=== PATIENT | male | born 1975 | race Caucasian/White ===

== ENCOUNTER 2020-04-08 12:38 | Inpatient (IN) | payer OTHER ==
[~2020-04-08] VITALS: Ht 177.8 cm; Wt 56.5 kg
[2020-04-08 12:50] VITALS: BP 125/43
--- NOTE | 2020-04-08 13:05 | NUR ---
DR BURNS EVALUATING PT AT BEDSIDE
[2020-04-08] MEDS ORDERED: NACL 0.9% 1,000 ML IV ONE ×2 (13:10→14:55)
--- NOTE | 2020-04-08 13:26 | NUR ---
PT STATES HE IS UNABLE TO VOID NOW. URINAL PROVIDED.
--- NOTE | 2020-04-08 13:26 | NUR ---
BLOOD DRAW HANDED TO PUBLIC HEALTH TECHNOLOGIST
--- NOTE | 2020-04-08 13:27 | NUR ---
XRAY AT BEDSIDE
--- NOTE | 2020-04-08 13:29 | NUR ---
C/O GENERALIZED WEAKNESS AND LOSS OF APPETITE X JANUARY BUT UNABLE TO GET SELF OUT OF BED YESTERDAY DUE TO SEVERE WEAKNESS. PT WAS ASSISTED FROM W/C TO [facility] BY DIRECTOR PROFESSIONAL SERVICES. PT REPORTS HE SPENT 12 DAYS AT [facility] IN JANUARY FOR ULCERATIVE COLITIS WHERE HE EXPERIENCED SEVERE WEIGHT LOSS DENIES N/V, F/C, BLOOD IN STOOL SINUS TACH ON BEDSIDE MONITOR RX- PREDNISONE AND MESALAMINE
[2020-04-08 13:36] LABS: HEMATOCRIT 30.9 % (36-52); HEMOGLOBIN 10.2 g/dL (12.0-18.0); MEAN CORPUSCULAR HEMOGLOBIN 28 pg (27-31); MEAN CORPUSCULAR HGB CONC 33 g/dL (33-37); MEAN CORPUSCULAR VOLUME 85.1 fL (80-94); PLATELET COUNT (AUTO) 600 K/uL (140-450); RED BLOOD CELL COUNT(AUTO) 3.64 MIL/uL (4.20-6.10); RED CELL DISTRIBUTION WIDTH 16.5 % (11.6-13.7); WHITE BLOOD COUNT (AUTO) 9.7 K/uL (4.8-10.8)
[2020-04-08 13:51] LABS: LYMPHOCYTES % (MANUAL) 18 % (20-46); MONOCYTES % (MANUAL) 7 % (5-12)
[2020-04-08 13:52] LABS: PROTHROMBIN TIME 10.8 secs (10.8-13.4)
[2020-04-08 13:53] LABS: ALBUMIN 1.7 g/dL (3.4-5.0); ANION GAP 14.3 (8-16); ASPARTATE AMINOTRANSFERASE 12 U/L (15-37); CARBON DIOXIDE 25.8 mmol/L (21-32); CHLORIDE 91 mmol/L (98-107); CREATININE 0.6 mg/dL (0.6-1.3); GFR ARICAN-AMERICAN 187 mL/min (>90); GLUCOSE 123 mg/dL (74-106); POTASSIUM 4.1 mmol/L (3.5-5.1); SODIUM SERUM 127 mmol/L (136-145); TOTAL BILIRUBIN 0.5 mg/dL (0.0-1.0); UREA NITROGEN, BLOOD 22 mg/dL (7-18)
--- NOTE | 2020-04-08 14:16 | NUR ---
ASKED LAB TO TEXTILE SCREEN MAKER URINE SAMPLE THAT WAS JUST COLLECTED
[2020-04-08 14:24] LABS: APPEARANCE,URINE CLOUDY (CLEAR); BILIRUBIN,URINE 2+ (NEGATIVE); BLOOD, URINE TRACE-I (NEGATIVE); COLOR,URINE DARK YELLOW (YELLOW); LEUKOCYTE ESTERASE ,URINE NEGATIVE (NEGATIVE); NITRITE, URINE POSITIVE (NEGATIVE); PH,URINE 6.5 (5.0-9.0); UGLUCOSE TRACE (NEGATIVE)
[2020-04-08 14:37] LABS: WBC,URINE 0-5 /HPF (0-5)
[2020-04-08 14:39] LABS: BARBITURATE, URINE NEGATIVE ng/ml (NEG <=200); BENZODIAZEPINE, URINE NEGATIVE ng/mL (NEG <=200); CANNABINOID, URINE NEGATIVE ng/mL (NEG <=50); COCAINE, URINE NEGATIVE ng/mL (NEG <=300); OPIATE, URINE NEGATIVE ng/mL (NEG <=2000); PHENCYCLIDINE SCREEN,URINE NEGATIVE ng/mL (NEG <=25)
[2020-04-08] MEDS ORDERED: MESA500C PO (14:59)
[2020-04-08] MEDS ORDERED: cefTRIAXone 1,000 MG VIAL ONE (14:59)
[2020-04-08] MEDS ORDERED: PRED10TA5 PO (14:59)
[2020-04-08 15:07] LABS: COARSE GRANULAR CASTS,URINE 0-10 /LPF (None Seen)
[2020-04-08] MEDS ORDERED: LORazepam 2 MG/ML VIAL IM/IVP PRN (15:20)
[2020-04-08] MEDS ORDERED: DOCUSATE SODIUM 100 MG GELCAP PO PRN (15:20)
[2020-04-08] MEDS ORDERED: ONDANSETRON 4 MG/2 ML VIAL IM/IVP PRN (15:20)
[2020-04-08] MEDS ORDERED: ACETAMINOPHEN 325 MG TAB PO PRN (15:20)
[2020-04-08] MEDS ORDERED: HYDROcodone/APAP 5/325 MG 1 TAB TAB PO PRN (15:20)
[2020-04-08] MEDS ORDERED: MORPHINE SULFATE 2 MG/ML SYR IVP PRN (15:20)
[2020-04-08 16:10] VITALS: BP 104/64
--- NOTE | 2020-04-08 16:10 | NUR ---
Patient will be admitted to care of DR. WELSH. Admited to TELE. Will go to room 111B. Belongings list completed. Report to PRINCESS GARNETT.
--- NOTE | 2020-04-08 16:10 | NUR ---
RECEIVED PATIENT FROM ED NURSE FOR CONTINUITY OF CARE VIA BRIANA. PATIENT IS AAOX4. RESPIRATIONS EVEN AND UNLABORED, ROOM AIR. VISIBLE CHEST RISE AND FALL NOTED. ON TELE MONITORING. ABDOMEN SOFT, FLAT, AND NONTENDER. HX OF ULCERATIVE COLITIS AND DM TYPE 2. SKIN WARM, DRY, AND INTACT. SACRAL REDNESS NOTED. IV ON R AC G20, SALINE LOCK. BEDREST DUE TO GENERALIZED WEAKNESS. PATIENT STATED HE HAS BEEN WEAK 2 MONTHS AGO. FALL PRECAUTION IN PLACE. BED IN LOW POSITION. CALL LIGHT IS WITHIN REACH. WILL CONTINUE TO MONITOR.
--- NOTE | 2020-04-08 16:14 | NUR ---
VITAL SIGNS TAKEN: BP 104/64, HR: 94, TEMPERATURE: 97.7, ORALLY, RESPIRATIONS 17, UNLABORED. DENIES PAIN. DENIES SOB. MRSA NARES SWAB COLLECTED.
[2020-04-08] MEDS: NACL 0.9% 1,000 ML IV SCH (16:15)
[2020-04-08] MEDS: LACTOBACILLUS RHAMNOSUS GG 1 EACH CAP PO SCH ×2 (16:16→16:28)
--- NOTE | 2020-04-08 16:16 | NUR ---
HUNG NS AT A RATE OF 60 ML/HR PER MD ORDER. GIVEN CULTURELLE DRAKE. EXPLAINED MEDICATION. WILL CONTINUE TO MONITOR
[2020-04-08 16:54] LABS: PHOSPHORUS 3.2 mg/dL (2.5-4.9); THYROID STIMULATING HORMONE 1.42 uIU/mL (0.34-3.74)
--- NOTE | 2020-04-08 17:15 | NUR ---
PER PATIENT, HE IS UNABLE TO DIGEST BEEF AND DAIRY. WILL NOTIFY FNS.
--- NOTE | 2020-04-08 17:22 | NUR ---
DR. MG AT BEDSIDE EXAMINING PATIENT
[2020-04-08] MEDS ORDERED: DEXTROSE 50% 50 ML SYR IVP PRN (17:40)
[2020-04-08] MEDS ORDERED: INSULIN LISPRO SLIDING SCALE 100 UNITS/ML VIAL SUBQ PRN (17:40)
--- NOTE | 2020-04-08 17:40 | NUR ---
ONE BM, LIQUID AND BROWN IN COLOR.
--- NOTE | 2020-04-08 17:54 | NUR ---
ASSISTED PATIENT TO COMMODE FOR BM.
[2020-04-08] MEDS ORDERED: SODIUM FERRIC GLUCONATE 125 MG in NACL 0.9% 100 ML IV SCH (18:00)
[2020-04-08] MEDS ORDERED: FERROUS SULFATE 325 MG TABEC PO SCH (18:00)
--- NOTE | 2020-04-08 18:12 | NUR ---
MEDS WERE GIVEN. MEDICATION EDUCATION WAS PROVIDED AND PATIENT VERBALIZED UNDERSTANDING. PATIENT WAS SITTING UPRIGHT EATING DINNER. PATIENT WAS IN STABLE CONDITION.
--- NOTE | 2020-04-08 19:15 | NUR ---
RECEIVED REPORT FROM AM SHIFT NURSE FOR CONTINUITY OF CARE. PATIENT ON TELE MONITOR. IV TO RIGHT AC INTACT AND PATENT WITH FLUIDS INFUSING. PATINET ON ROOM AIR, NO S/S OF RESP DISTRESS. BEDSIDE COMMODE IS NEAR AND PATIENT ENCOURAGED TO CALL FOR ASSISTANCE. VERBALIZED UNDERSTANDING. NO CURRENT COMPLAINT OF PAIN. BED IN LOW POSITION AND CALL LIGHT WITHIN REACH. WILL CONTINUE TO MONITOR
--- NOTE | 2020-04-08 19:21 | NUR ---
ENDORSED PATIENT TO NBA PLAYER NURSE FOR CONTINUITY OF CARE. PATIENT IS IN STABLE CONDITION.
[2020-04-08 20:00] VITALS: BP 104/56
[2020-04-08] MEDS: BLOOD GLUCOSE MONITORING 1 DEV DEV FS SCH (20:59)
--- NOTE | 2020-04-08 20:59 | NUR ---
BLOOD SUGAR WAS CHECKED RESULT 87. PROVIDED WITH SOME SANDWICH. WILL CONTINUE TO MONITOR.
[2020-04-08] MEDS: predniSONE 10 MG TAB PO SCH (21:00)
[2020-04-08] MEDS: MESALAMINE 400 MG CAPSULE.DR PO SCH (21:03)
--- NOTE | 2020-04-08 21:10 | NUR ---
MEDICATION GIVEN BY MOUTH AND PATIENT TOLERATED WELL. MEDICATION EDUCATION GIVEN AND PATIENT VERBALIZED UNDERSTANDING. SNACKS AND WATER PROVIDED. PATIENT WILL CONTINUE TO BE MONITORED.
--- NOTE | 2020-04-08 22:00 | NUR ---
ASSISTED TO USE BSC. VOIDED AND HAD A LOOSE BM. CLEANED AND KEPT DRY. ASSISTED BACK TO BED WITH NO SOB NOTED.
[2020-04-09 00:10] VITALS: BP 95/62
--- NOTE | 2020-04-09 01:30 | NUR ---
MADE ROUNDS. PT IS ASLEEP. NO S/S OF ANY DISCOMFORT NOR PAIN NOTED.
--- NOTE | 2020-04-09 03:24 | NUR ---
PATIENT AWAKE, REQUESTED A SANDWICH TO EAT, AND ONE WAS PROVIDED. NO CURRENT COMPLAINTS VOICED. WILL CONTINUE TO MONITOR.
[2020-04-09 04:00] VITALS: BP 103/69
--- NOTE | 2020-04-09 05:35 | NUR ---
PATIENT RESTING IN BED WITH EYES CLOSED, RESP EVEN AND UNLABORED
[2020-04-09] MEDS: BLOOD GLUCOSE MONITORING 1 DEV DEV FS SCH ×4 (06:21→20:40)
--- NOTE | 2020-04-09 06:24 | NUR ---
BLOOD GLUCOSE 83, NO COVERAGE NEEDED
[2020-04-09 06:43] LABS: BASOPHILS % (AUTO) 0.2 % (0.0-2.0); EOSINOPHILS % (AUTO) 0.2 % (0.0-4.0); HEMOGLOBIN 8.3 g/dL (12.0-18.0); LYMPHOCYTES # (AUTO) 1.4 K/uL (2.0-11.5); LYMPHOCYTES % (AUTO) 19.3 % (20.5-51.1); MEAN CORPUSCULAR HEMOGLOBIN 29 pg (27-31); MEAN CORPUSCULAR HGB CONC 33 g/dL (33-37); MONOCYTES # (AUTO) 0.6 K/uL (0.8-1.0); MONOCYTES % (AUTO) 8.2 % (1.7-9.3); NEUTROPHILS # (AUTO) 5.2 K/uL (1.8-7.7); NEUTROPHILS % (AUTO) 72.1 % (42.2-75.2); PLATELET COUNT (AUTO) 466 K/uL (140-450); RED BLOOD CELL COUNT(AUTO) 2.87 MIL/uL (4.20-6.10); RED CELL DISTRIBUTION WIDTH 16.7 % (11.6-13.7); WHITE BLOOD COUNT (AUTO) 7.2 K/uL (4.8-10.8)
[2020-04-09 06:58] LABS: CARBON DIOXIDE 28.6 mmol/L (21-32); CREATININE 0.5 mg/dL (0.6-1.3); POTASSIUM 4.6 mmol/L (3.5-5.1)
--- NOTE | 2020-04-09 07:10 | NUR ---
RECEIVED REPORT FROM NIGHT NURSE FOR CONTINUITY OF CARE, PT IS STABLE, PT RESTING IN BED, PT AA0X4, PT ON ROOM AIR, PT HAS RIGHT AC 20G INFUSING NORMAL SALINE AT 60 ML/H, SKIN INTACT, INTRODUCE SELF, UPDATED WHITEBOARD, BED IN LOW POSITION, SAFETY MEASURES IN PLACE, CALL LIGHT WITHIN REACH,
[2020-04-09 07:11] LABS: CHOL/HDL RATIO 2.3 (1-4.5)
--- NOTE | 2020-04-09 07:30 | NUR ---
REPORT GIVEN TO AM SHIFT NURSE FOR CONTINUITY OF CARE. PATIENT IN STABLE CONDITION AT THIS TIME
[2020-04-09 08:00] VITALS: BP 97/63
[2020-04-09 08:18] LABS: FOLIC ACID 6.3 ng/mL (>3.0)
[2020-04-09] MEDS: NACL 0.9% 1,000 ML IV SCH ×2 (08:53→23:12)
[2020-04-09] MEDS: FERROUS SULFATE 325 MG TABEC PO SCH ×2 (08:53→16:55)
[2020-04-09] MEDS: LACTOBACILLUS RHAMNOSUS GG 1 EACH CAP PO SCH (08:55)
[2020-04-09] MEDS: ASCORBIC ACID 500 MG TAB PO SCH (08:55)
[2020-04-09] MEDS: predniSONE 10 MG TAB PO SCH ×2 (08:55→20:45)
[2020-04-09] MEDS: MESALAMINE 400 MG CAPSULE.DR PO SCH ×2 (08:56→21:00)
--- NOTE | 2020-04-09 08:59 | NUR ---
ADMINISTERED SCHEDULED MEDICATION, MEDICATION EDUCATION GIVEN, PT VERBALIZED UNDERSTANDING, PT TOLERATED WELL, PT IS STABLE, CALL LIGHT WITHIN REACH.
--- NOTE | 2020-04-09 11:40 | NUR ---
PT RESTING IN BED, NO SIGNS OF DISTRESS NOTED, RESPIRATIONS ARE EVEN AND UNLABORED ON ROOM AIR, PT IS STABLE, CALL LIGHT WITHIN REACH.
[2020-04-09 12:00] VITALS: BP 102/74
--- NOTE | 2020-04-09 13:12 | NUR ---
PT RESTING IN BED WATCHING TV, PT IS STABLE, NO SIGNS OF DISTRESS NOTED, RESPIRATIONS ARE EVEN AND UNLABORED ON ROOM AIR, CALL LIGHT WITHIN REACH.
--- NOTE | 2020-04-09 15:14 | NUR ---
ADMINISTERED SCHEDULED MEDICATION, MEDICATION EDUCATION GIVEN, PT VERBALIZED UNDERSTANDING, PT TOLERATED MEDICATION, PT IS STABLE, NO SIGNS OF DISTRESS NOTED, RESPIRATIONS ARE EVEN AND UNLABORED ON ROOM AIR.
[2020-04-09 16:00] VITALS: BP 99/66
--- NOTE | 2020-04-09 16:57 | NUR ---
ADMINISTERED SCHEDULED MEDICATION, MEDICATION EDUCATION GIVEN, PT VERBALIZED UNDERSTANDING, PT IS STABLE, NO SIGNS OF DISTRESS NOTED, RESPIRATIONS ARE EVEN AND UNLABORED ON ROOM AIR, CALL LIGHT WITHIN REACH.
--- NOTE | 2020-04-09 19:20 | NUR ---
GAVE REPORT TO NIGHT NURSE FOR CONTINUITY OF CARE, PT IS STABLE
--- NOTE | 2020-04-09 19:25 | NUR ---
RECEIVED ENDORSEMENT FROM AM SHIFT RN. PATIENT IS LYING IN BED, FOWLERS POSITION. AAOX4. RESPIRATION EVEN AND UNLABORED. DENIES PAIN. ASSESSMENT DONE. WITH IV SITE AT RAC 20 G, INFUSING IVF AT 60CC/HR. PATIENT USES BEDSIDE COMMODE ENDORSED. PLAN OF CARE WAS DISCUSSED. FALL RISK PROTOCOL ON PLACE. CALL LIGHT WITHIN REACH. WILL CONTINUE TO MONITOR.
[2020-04-09 20:00] VITALS: BP 107/70
--- NOTE | 2020-04-09 20:40 | NUR ---
DUE MEDS GIVEN ORDERED. TOLERATED WELL. MESALAMINE CAPSULE WAS NOT GIVEN DUE TO UNAVAILABILITY OF MED.
--- NOTE | 2020-04-09 21:30 | NUR ---
ASSISTED PATIENT TO BEDSIDE COMMODE. NOTED BM X1. VOID X1.
[2020-04-10] VITALS: BP 107/68
--- NOTE | 2020-04-10 | NUR ---
V/S TAKEN AND RECORDED. NOT IN ANY ACUTE DISTRESS.
--- NOTE | 2020-04-10 03:42 | NUR ---
PATIENT IS SLEEPING AT THIS TIME. RESPIRATION EVEN AND UNLABORED.
[2020-04-10 04:00] VITALS: BP 90/63
[2020-04-10] MEDS: BLOOD GLUCOSE MONITORING 1 DEV DEV FS SCH ×4 (05:30→21:43)
[2020-04-10 06:57] LABS: BASOPHILS % (AUTO) 0.2 % (0.0-2.0); EOSINOPHILS % (AUTO) 0.2 % (0.0-4.0); HEMATOCRIT 24.9 % (36-52); HEMOGLOBIN 8.1 g/dL (12.0-18.0); LYMPHOCYTES # (AUTO) 1.5 K/uL (2.0-11.5); LYMPHOCYTES % (AUTO) 20.3 % (20.5-51.1); MEAN CORPUSCULAR HEMOGLOBIN 28 pg (27-31); MEAN CORPUSCULAR HGB CONC 33 g/dL (33-37); MEAN CORPUSCULAR VOLUME 87.5 fL (80-94); MONOCYTES # (AUTO) 0.6 K/uL (0.8-1.0); MONOCYTES % (AUTO) 7.7 % (1.7-9.3); NEUTROPHILS # (AUTO) 5.4 K/uL (1.8-7.7); NEUTROPHILS % (AUTO) 71.6 % (42.2-75.2); PLATELET COUNT (AUTO) 445 K/uL (140-450); RED BLOOD CELL COUNT(AUTO) 2.85 MIL/uL (4.20-6.10); RED CELL DISTRIBUTION WIDTH 16.7 % (11.6-13.7); WHITE BLOOD COUNT (AUTO) 7.5 K/uL (4.8-10.8)
[2020-04-10 06:58] LABS: ANION GAP 9.9 (8-16); CARBON DIOXIDE 26.7 mmol/L (21-32); CREATININE 0.5 mg/dL (0.6-1.3); POTASSIUM 3.6 mmol/L (3.5-5.1)
[2020-04-10 07:00] LABS: MAGNESIUM 1.6 mg/dL (1.8-2.4); PHOSPHORUS 3.2 mg/dL (2.5-4.9)
--- NOTE | 2020-04-10 07:05 | NUR ---
PATIENT IS IN STABLE CONDITION. ENDORSED TO AM SHIFT RN FOR CONTINUITY OF CARE.
--- NOTE | 2020-04-10 07:11 | NUR ---
RECEIVED REPORT FROM NIGHT NURSE FOR CONTINUITY OF CARE. PT RESTING IN BED, AROUSABLE BY VOICE, AOX4. RESPIRATIONS EVEN AND UNLABORED, EQUAL RISE AND FALL OF CHEST BILATERALLY. NO C/O PAIN AT THIS TIME. ALL NEEDS MET. BED LOCKED & LOW, ALL SAFETY MEASURES IN PLACE, CALL LIGHT WITHIN REACH.
--- NOTE | 2020-04-10 07:45 | NUR ---
PT STATES HE DOES NOT WANT DAIRY PRODUCTS ON HIS FOOD TRAY, THAT HE HAS ALLERGY TO DAIRY
[2020-04-10 08:00] VITALS: BP 100/65
--- NOTE | 2020-04-10 08:22 | NUR ---
PATIENT HAS BEEN SCREENED AND CATEGORIZED HIGH NUTRITION RISK. PATIENT WILL BE SEEN WITHIN 1-2 DAYS OF ADMISSION. 04/09/20 - 04/10/20 BERONICA CHICAS MBA, RD
--- NOTE | 2020-04-10 08:45 | NUR ---
CALLED PHARMACY TO BRING SCHEDULED MESALAMINE
[2020-04-10] MEDS: FERROUS SULFATE 325 MG TABEC PO SCH ×2 (09:00→16:09)
[2020-04-10] MEDS: ASCORBIC ACID 500 MG TAB PO SCH (09:01)
[2020-04-10] MEDS: LACTOBACILLUS RHAMNOSUS GG 1 EACH CAP PO SCH (09:01)
[2020-04-10] MEDS: predniSONE 10 MG TAB PO SCH ×2 (09:01→21:43)
--- NOTE | 2020-04-10 09:02 | NUR ---
PT C/O ABD CRAMPING PAIN AFTER EATING SOME OF THE HIGH FIBER BREAKFAST TRAY ORDERED FOR HIM. REFUSING PAIN MEDS AT THIS TIME. WANTS TO SPEAK WITH DRAlex MCDONOUGH OF ABOVE, DR. MCDONOUGH WILL SPEAK WITH PATIENT AT BEDSIDE.
--- NOTE | 2020-04-10 09:23 | NUR ---
HR ASSOCIATE NOTE: Basic Screen: Yes High Risk DC Screen [place]: RENEE LARA [place] Relationship: Pre-Admission Living Arrangements: Lives with Other Prior ADL Independent Current Home Health Name/Tel: N/A Current DME/02 Name/Tel: N/A Current Hospice Name/Tel: N/A Current Dialysis Name/Tel: N/A Advance Directive No Physician Orders for Life Sustaining Treatment Form No Patient/Family Have Educational Needs No Discipline: Case Mgt/Social Svcs Tentative Discharge Plan/Destination: No Needs Identified Will require assistance post discharge: No Referred to Hospital Insurance Representative: No Tentative Discharge Plan Summary: PATIENT IS A 44-YEAR-OLD MALE ADMITTED FOR UTI. PATIENT HAS PMHX OF DM AND ULCERATIVE COLITIS. PATIENT WAS ADMITTED FROM HOME WHERE HE LIVES WITH HIS AND CHILDREN. SW CONTACTED PATIENT'S RENEE LARA [phone]. PER RENEE, PATIENT IS INDEPENDENT WITH ALL ADLS. RENEE REPORTS NO HISTORY OF SUBSTANCE ABUSE OR MENTAL HEALTH. TENTATIVE DISCHARGE PLAN IS FOR PATIENT TO RETURN HOME. NO FURTHER NEEDS IDENTIFIED. Signature: ABBIE BURGESS` Date: Apr 10, 2020 Time: 09:22
--- NOTE | 2020-04-10 09:46 | NUR ---
04/10/20 RD INITIAL ASSESSMENT COMPLETED PLEASE REFER TO NUTRITION ASSESSMENT UNDER CARE ACTIVITY FOR ESTIMATED NUTRITIONAL NEEDS. RD RECOMMENDATIONS: 1. RECOMMEND CHANGE DIET TO 75G CCHO, LOW FIBER DIET (ACCOMODATE FOR INCREASED ENERGY/PROTEIN NEEDS /DM & ULCERATIVE COLITIS) 2. HONOR FOOD PREFERENCES / ENCOURAGE INCREASED PO INTAKE 3. F/U 2-3 DAYS; HIGH RISK BERONICA CHICAS MBA, RD
[2020-04-10] MEDS: MESALAMINE 400 MG CAPSULE.DR PO SCH ×2 (09:47→21:44)
--- NOTE | 2020-04-10 11:21 | NUR ---
DR MCDONOUGH EVALUATING PT, SPEAKING WITH PT AND DISCUSSING POC AT THIS TIME
[2020-04-10] MEDS: NACL 0.9% 1,000 ML IV SCH ×2 (11:24→16:09)
[2020-04-10] MEDS: MAG SULF 2000 MG/WATER PREMIX 100 ML IV SCH ×2 (11:31→14:22)
[2020-04-10 12:00] VITALS: BP 104/69
--- NOTE | 2020-04-10 14:33 | NUR ---
PT RESTING IN BED. APPEARS FATIGUED. NO PAIN. ALL NEEDS MET AT THIS TIME.
[2020-04-10 16:00] VITALS: BP 101/62
--- NOTE | 2020-04-10 17:41 | NUR ---
PT HAD MUSHY STOOLS TODAY, DR. MCDONOUGH IS AWARE
--- NOTE | 2020-04-10 19:21 | NUR ---
REPORT TO GERIATRIC PSYCHIATRIST RN, TRANSFER OF CARE AT THIS TIME, PT IN STABLE CONDITION.
--- NOTE | 2020-04-10 19:30 | NUR ---
RECEIVED REPORT FROM AM RN. RECEIVED PATIENT A/A/OX4, SITTING UP IN BED EATING DINNER WHILE WATCHING TV. PATIENT DENIES ANY ABDOMINAL PAIN,NAUSEA AND VOMITING AT THIS TIME. SR ON FLATWARE MAKER,HR-95.IVF NS INFUSING @ 100C/HR ORDERED.DISCUSSED POC WITH THE PT AND VERBALIZED UNDERSTANDING. CALL LIGHT WITHIN REACH. WILL CONTINUE MONITORING AND POC.
[2020-04-10 20:00] VITALS: BP 98/64
--- NOTE | 2020-04-10 21:30 | NUR ---
SCHEDULED MEDS GIVEN TO THE PATIENT ORDERED. PT TOLERATED IT WELL. BLOOD SUGAR WAS 81, NO COVERGAE GIVEN AND NEEDED.SAFETY MEASURES IN PLACED. CALL LIGHT WITHIN REACH.
--- NOTE | 2020-04-10 23:30 | NUR ---
PT SLEEPING AT THIS TIME. NO S/SX OF DISTRESS NOTED.NO COMPLAIN AT THIS TIME. CALL LIGHT WITHIN REACH.
[2020-04-11] VITALS: BP 98/62
[2020-04-11] MEDS: NACL 0.9% 1,000 ML IV SCH ×2 (02:03→12:55)
--- NOTE | 2020-04-11 02:05 | NUR ---
PT SLEEPING. HANG A NEW BAG OF NS. PT WOKE UP BUT NO C/O PAIN AT THIS TIME.WILL CONTINUE TO MONITOR. CALL LIGHT WITHIN REACH.
[2020-04-11 04:00] VITALS: BP 96/63
--- NOTE | 2020-04-11 04:10 | NUR ---
CHECKED PT VS. SBP REMAINS ON THE HIGH 90'S. PT ASYMPTOMATIC ,AFEBRILE, SATING 97% ON RA. PT DENIES ANY PAIN AT THIS TIME. SR ON ORIENTATION & MOBILITY SPECIALIST, HR-89.WILL CONTINUE POC AND MONITORING. SAFETY MEASURES IN PLACED.
--- NOTE | 2020-04-11 06:17 | NUR ---
PT STABLE. NO ACUTE EVENTS ALL NIGHT. ALL NEEDS ATTENDED.CALL LIGHT WITHIN REACH. WILL ENDORSE THE PT TO THE ONCOMING RN FOR CONTINUITY OF CARE.
[2020-04-11] MEDS: BLOOD GLUCOSE MONITORING 1 DEV DEV FS SCH ×2 (06:35→11:59)
[2020-04-11 07:09] LABS: EOSINOPHILS % (AUTO) 0.5 % (0.0-4.0); HEMATOCRIT 28.3 % (36-52); HEMOGLOBIN 9.1 g/dL (12.0-18.0); LYMPHOCYTES # (AUTO) 2.1 K/uL (2.0-11.5); LYMPHOCYTES % (AUTO) 29.1 % (20.5-51.1); MEAN CORPUSCULAR HEMOGLOBIN 28 pg (27-31); MEAN CORPUSCULAR HGB CONC 32 g/dL (33-37); MEAN CORPUSCULAR VOLUME 87.9 fL (80-94); MONOCYTES # (AUTO) 0.5 K/uL (0.8-1.0); MONOCYTES % (AUTO) 6.7 % (1.7-9.3); NEUTROPHILS # (AUTO) 4.5 K/uL (1.8-7.7); NEUTROPHILS % (AUTO) 63.7 % (42.2-75.2); PLATELET COUNT (AUTO) 510 K/uL (140-450); RED BLOOD CELL COUNT(AUTO) 3.22 MIL/uL (4.20-6.10); RED CELL DISTRIBUTION WIDTH 16.9 % (11.6-13.7); WHITE BLOOD COUNT (AUTO) 7.1 K/uL (4.8-10.8)
[2020-04-11 07:18] LABS: ANION GAP 14.3 (8-16); CARBON DIOXIDE 22.6 mmol/L (21-32); CREATININE 0.6 mg/dL (0.6-1.3); POTASSIUM 3.9 mmol/L (3.5-5.1)
[2020-04-11 07:19] LABS: MAGNESIUM 2.3 mg/dL (1.8-2.4); PHOSPHORUS 3.3 mg/dL (2.5-4.9)
--- NOTE | 2020-04-11 07:20 | NUR ---
Received report from pm nurse LYLE. Pt resting in bed, FLACC 0, no signs of distress, respirations even & nonlabored in room air. Right AC IV 20G intact with ongoing NS @ 100ml/hr. Call light within reach.
[2020-04-11 08:00] VITALS: BP 97/66
[2020-04-11] MEDS ORDERED: MESALAMINE 400 MG CAPSULE.DR PO SCH (08:50)
[2020-04-11] MEDS: ASCORBIC ACID 500 MG TAB PO SCH (08:54)
[2020-04-11] MEDS: LACTOBACILLUS RHAMNOSUS GG 1 EACH CAP PO SCH (08:54)
[2020-04-11] MEDS: predniSONE 10 MG TAB PO SCH (08:54)
[2020-04-11] MEDS: FERROUS SULFATE 325 MG TABEC PO SCH (08:54)
[2020-04-11 12:00] VITALS: BP 100/66
[2020-04-11] MEDS ORDERED: LEVO750T2 PO (12:43)
[2020-04-11] MEDS ORDERED: LACT10CA PO (12:43)
[2020-04-11] MEDS ORDERED: LEVOFLOXACIN 750 MG TAB PO SCH ×2 (13:00→15:00)
--- NOTE | 2020-04-11 14:33 | NUR ---
FAXED PATIENTS CLINICALS TO [facility] [phone]. FAX # [phone] Addendum: 04/11/20 at 1539 by Linda Johnson CM SPOKE TO CAROLINA MANE AT [facility] [phone]. FAX # [phone]. HE IS WORKING ON FINDING AN ACCEPTING HOME HEALTH AGENCY. FAXED PATIENTS ORDER TO [facility] FOR [facility] WHE[facility] WALKERAlex YANES FROM [facility] [phone] WILL SEND [facility] AUTH FOR WALKER. Addendum: 04/11/20 at 4091 by Linda Johnson CM SPOKE TO NICK FROM [facility] REGARDING [employer] [phone]. FAX # [phone]. SHE IS REVIEWING THE ORDER AND WILL CONTACT ME BACK Addendum: 04/11/20 at 1615 by Linda Johnson CM PATIENT HAS BEEN ACCEPTED WITH [facility] [phone]. A NURSE WILL BE OUT WITHIN 24-48 HOURS. VERIFIED PATIENTS ADDRESS IS CORRECT. NOTIFIED MARIOLA OJEDA OF ACCEPTING HOME HEALTH AGENCY
--- NOTE | 2020-04-11 15:51 | NUR ---
P.T. NOTES P.T. EVAL COMPLETED; WILL BENEFIT W/ P.T. POST ACUTE STAY, FWW FOR HOME USE.
--- NOTE | 2020-04-11 16:17 | NUR ---
Verbal and written discharge instructions provided to patient. Pt verbalized understanding and agree with discharge plans. Right AC IV discontinued, cannula intact, site with min bleeding covered with gauze. Per pt, will come to pick her up in about 30min-1hr.
== END 2020-04-11 17:00 | disposition home or self-care (01) | DRG 871 ==
LOC: MED 12:38 → MTU 15:16
PROVIDERS: ADMIT General Practice; ATTEND General Practice
DX: A41.9 Sepsis, unspecified organism (principal); E43 Unspecified severe protein-calorie malnutrition; N39.0 Urinary tract infection, site not specified; E87.1 Hypo-osmolality and hyponatremia; K51.90 Ulcerative colitis, unspecified, without complications; Z68.1 Body mass index [BMI] 19.9 or less, adult; E11.65 Type 2 diabetes mellitus with hyperglycemia; E86.0 Dehydration; R26.81 Unsteadiness on feet; D63.8 Anemia in other chronic diseases classified elsewhere; E83.42 Hypomagnesemia; B96.89 Other specified bacterial agents as the cause of diseases classified elsewhere; D47.3 Essential (hemorrhagic) thrombocythemia; Z83.3 Family history of diabetes mellitus; Z80.52 Family history of malignant neoplasm of bladder; Z80.1 Family history of malignant neoplasm of trachea, bronchus and lung; Z82.49 Family history of ischemic heart disease and other diseases of the circulatory system; Z87.891 Personal history of nicotine dependence
CPT/HCPCS: 36415; 71045; 80048; 80053; 80305; 81001; 82607; 82728; 82746; 82948; 83036; 83540; 83605; 83690; 83735; 83880; 84100; 84443; 84484; 85025; 85045; 85610; 85730; 87040; 87081; 87086; 87186; 93005; 97112; 99285; G0482; J0696; J1815; J2916; J3475; J7030; J7060; J7512; Q0092